=== PATIENT | male | born 1950 | race Hispanic/Latino ===

== ENCOUNTER → 2024-05-24 08:54 | Outpatient (CLI) | payer OTHER, SELFPAY ==
--- NOTE | 2024-05-24 09:01 | DI.ECHO.S_ITS ---
[facility] : : [address] : : [place] : : [id number] : : Phone: [phone] Echocardiogram Report + + :Name: BERT TORRES Study Date: 05/24/2024 Height: 67 in : :[facility] ReadingLocation: Weight: 190 lb : : Gender: Male BSA: 2.0 m2 : :: 1950 Age: 74 yrs BP: 199/96 mmHg: :Reason For Study: ABNORMAL STRESS TEST : :Ordering Physician: KRYSTAL MENDEZ Performed By: Demetrius Benitez : :Referring: KRYSTAL MENDEZ : + + Interpretation Summary 1. The left ventricular contractility is normal. Estimated ejection fraction is greater than 60% with no segmental wall motion abnormalities. Mild concentric LVH. Grade 1 diastolic dysfunction. 2. The right ventricle contractility is normal. 3. Severe left atrial enlargement noted. All other cardiac chambers are of normal size. 4. No significant valvular abnormalities. 5. No obvious intracardiac shunts. 6. No obvious intra neck masses nor thrombi. 7. No hemodynamically significant pericardial effusion. 8. Low right-sided filling pressures. Conclusion: Normal biventricular systolic function with no significant valvular abnormalities. Procedure: A two-dimensional transthoracic echocardiogram with color flow and Doppler was performed. The study quality was technically good. Comparison is made with the echocardiogram of 09/17/2021. The patient was in normal sinus rhythm during the exam. Left Ventricle: The left ventricle is normal in size. Left ventricular wall thickness is mildly increased. There is no ventricular septal defect visualized. The ejection fraction is estimated to be 60-65%. There are no focal wall motion abnormalities. Right Ventricle: The right ventricle is normal in size and function. Atria: The left atrium is severely dilated. Right atrial size is normal. Mitral Valve: There is mild mitral annular calcification. The mitral valve leaflets are mildly calcified. There is trace mitral regurgitation. Aortic Valve: The aortic valve is trileaflet. The aortic valve opens well. The aortic valve is mildly calcified. No aortic regurgitation is present. Tricuspid Valve: The tricuspid valve is normal in structure and function. There is trace tricuspid regurgitation. The right ventricular systolic pressure is estimated to be at least 37 mmHg based on an estimated right atrial pressure of 3 mm Hg. Pulmonic Valve: The pulmonic valve is normal in structure and function. There is no pulmonic valvular regurgitation. Great Vessels: The aortic root is normal size. The ascending aorta is at the upper limits of normal in size. The pulmonary artery is normal size. The IVC is of normal diameter and collapses greater than 50% with a sniff. This suggests a low right atrial pressure of 3 mm Hg. Pericardium/ Pleura There is no pericardial effusion. There is no pleural effusion. MMode/2D Measurements & Calculations LVIDd: 5.7 cm LVOT diam: 2.2 cm LVIDs: 3.8 cm Ao root diam: 3.3 cm FS: 32.7 % asc Aorta Diam: 3.8 cm EPSS: 1.2 cm Ao Arch Diam (Prox Trans): 1.8 cm IVSd: 1.1 cm LVPWd: 1.1 cm LV perez. diameter/BSA (cm/m^2): 2.9 LV sys. diameter/BSA (cm/m^2): 1.9 LA A2 area: 32.2 cm2 RA long axis: 5.5 cm LA A4 area: 29.0 cm2 RA area: 17.0 cm2 LA length (vol): 7.0 cm RA vol: 45.1 ml LA vol: 112.7 ml RA : 22.8 ml/m2 LA vol index: 57.0 ml/m2 IVC diam: 1.5 cm RVD1 (basal): 3.6 cm RVD2 (mid): 2.9 cm TAPSE: 2.4 cm Doppler Measurements & Calculations Ao V2 max: 213.5 cm/sec LVOT Max Royal: 117.0 cm/sec Ao V2 mean: 140.1 cm/sec LV V1 max P.5 mmHg Ao max P.2 mmHg LV V1 VTI: 28.6 cm Ao mean P.1 mmHg TAMMI(I,D): 2.1 cm2 Ao V2 VTI: 51.2 cm TAMMI(V,D): 2.1 cm2 sev ratio: 0.56 TAMMI indexed to BSA (cm^2/m^2): 1.1 MV E max royal: 85.7 cm/sec TR max royal: 290.9 cm/sec MV A max royal: 88.3 cm/sec TR max P.9 mmHg MV E/A: 0.97 PA V2 max: 78.9 cm/sec Med Peak E' Royal: 4.3 cm/sec PA V2 mean: 58.7 cm/sec E/E' med: 19.8 PA mean P.5 mmHg Lat Peak E' Royal: 4.3 cm/sec PA pr(Accel): 49.9 mmHg E/E' lat: 19.7 E/e' average: 19.7 MV dec time: 0.34 sec SV(LVOT): 109.7 ml Reading Physician:
== END ==
PROVIDERS: Referring Provider Internal Medicine; Visit Provider Internal Medicine
DX: I34.81 Nonrheumatic mitral (valve) annulus calcification (principal); R94.39 Abnormal result of other cardiovascular function study
CPT/HCPCS: 93306

== ENCOUNTER → 2024-06-30 09:58 | Outpatient (CLI) | payer OTHER, SELFPAY ==
--- NOTE | 2024-06-30 10:02 | DI.NM.S_ITS ---
PROCEDURE: NM [facility] PERF SPECT R&S PHARM Rest and pharmacological stress myocardial perfusion SPECT with gated imaging and ejection fraction RADIOPHARMACEUTICAL: 12.4 mCi Tc-99m tetrafosmin IV at rest and 25.6 mCi Tc-99m tetrafosmin IV at peak effect of pharmacological stress. [id number] was performed. INDICATIONS: CAD TECHNIQUE: Radiopharmaceutical was injected at peak stress test, and also at rest. SPECT images were obtained. SPECT myocardial perfusion images were displayed in short axis, horizontal long axis, and vertical long axis views. Gated images were reviewed using RSens software. COMPARISON: None. CARDIAC STRESS: A pharmacologic stress test was performed under the supervision of an attending staff, using an infusion of lexiscan after the patient didn't reach target heart rate on treadmill. Hemodynamic data: There is normal blood pressure and heart rate response to pharmacologic stress. Symptoms: The patient denied anginal chest pain. Aminophylline: none EKG: Mild horizontal ST depressions in the anterolateral and inferior leads during recovery; frequent PACs noted. FINDINGS: Raw data: There is good myocardial uptake of radiotracer. No significant motion artifacts. Xuct-ja-nfrro ratio is 0.31 (normal is less than 0.38 for tetrafosmin tracer). Left ventricle function: Gated images demonstrate normal left ventricular wall thickening. No segmental wall motion abnormalities. No transient ischemic dilation; TID is 0.89 (normal less than 1.3). Left ventricle resting end diastolic volume is 116 mL. Left ventricle stress ejection fraction is 58%; normal range is above 45%. Myocardial perfusion: Mildly intense fixed basal inferior wall defect that resolves with prone imaging, suggesting diaphragmatic attenuation artifact. No ischemia and no infarction present. IMPRESSION: Low risk, normal pharm nuclear stress test from inducible ischemia standpoint. 1) Mildly intense fixed basal inferior wall defect that resolves with prone imaging, suggesting diaphragmatic attenuation artifact. No ischemia and no infarction present. 2) Normal left ventricular size, wall motion, and systolic function (EF post stress 58%). 3) Mild horizontal ST depressions in the anterolateral and inferior leads during recovery. 4) No angina during the study. 5) Above average exercise tolerance (10.1METs, AVEL -9%). Since only 74% of maximum predicted heart rate reached (patient on beta alba), study switched to lexiscan. 6) No prior nuclear stress test available for comparison. Dictated by: Gabo Kent MD on 06/30/2024 at 16:33 Approved by: Gabo Kent MD on 06/30/2024 at 16:38
== END ==
PROVIDERS: Referring Provider Internal Medicine; Visit Provider Internal Medicine
DX: R94.39 Abnormal result of other cardiovascular function study (principal)
CPT/HCPCS: 78452; 93017; A9502; J2785